=== PATIENT | male | born 1935 | race Caucasian/White ===

== ENCOUNTER → 2016-12-31 | Outpatient (CLI) | payer MEDICARE, BC ==
[2015-08-13 19:28] VITALS: BP 115/59
[~2016-12-31] MED LIST: ALBUTEROL0.63 MG/3 INH; ALDACTONE 25MG25 M1 PO; AVODART 0.5MG0.5 MG PO; COREG12.5 MG PO; COUMADIN 5MG5 MG/TAB PO; COUMADIN5 MG PO; DIGOX0.125 MG PO; FINASTERIDE5 M1 PO; IPRATROPIUM BROM3 M1 IH; LASIX40 MG PO; METOLAZONE5 MG PO; MUCINEX 60600 MG/TA1 PO; OMEPRAZOLE20 MG PO; QUINAPRIL HCL10 MG PO; QUINAPRIL HCL5 MG PO; SENNA8.6 M2 PO; SPIRIVA HANDIH18 MCG IH; ST. JOSEPH81 M2 PO; SYNTHROID0.1 MG PO; VYTORIN 10 MG-81 TAB PO
== END ==
LOC: LAB 10:10
DX: Z51.81 Encounter for therapeutic drug level monitoring (principal); Z79.899 Other long term (current) drug therapy; I50.9 Heart failure, unspecified

== ENCOUNTER → 2017-07-30 | Outpatient (CLI) | payer MEDICARE, BC ==
[2015-08-13 19:28] VITALS: BP 115/59
[2017-07-30 12:30] LABS: ALBUMIN 3.7 g/dL (3.5-5.0); BUN/CREATININE RATIO 16.6 (6.0-26.0); CALCIUM 9.2 mg/dL (8.4-10.2); POTASSIUM 4.8 mmol/L (3.6-5.0); TOTAL BILIRUBIN 0.7 mg/dL (0.2-1.3); TOTAL PROTEIN 7.3 g/dL (6.3-8.2)
[2017-07-30 13:20] LABS: HEMATOCRIT 39.4 % (42.0-52.0); HEMOGLOBIN 13.3 g/dL (13.5-18.0); MEAN CELL VOLUME 95 fl (78-100); MEAN CORPUSCULAR HEMOGLOBIN 32 pg (27-31); MEAN CORPUSCULAR HGB CONC 34 g/dL (33-37); MEAN PLATELET VOLUME 10.9 fl (7.4-10.4); PLATELET COUNT 183 K/mm3 (130-400); RED BLOOD COUNT 4.16 M/mm3 (4.20-5.60); RED CELL DISTRIBUTION WIDTH 13.6 % (11.5-14.5); WHITE BLOOD COUNT 6.9 K/mm3 (4.8-10.8)
[2017-07-30 13:42] LABS: LYMPHOCYTE 10 % (20-51); NEUTROPHILS 76 % (42-75)
[2017-07-30 13:43] LABS: MONOCYTE 10 % (3-10)
[2017-07-30 13:45] LABS: ERYTHROCYTE SEDIMENTATION RATE 14 mm/hr (0-20)
[2017-07-31 01:04] LABS: TESTOSTERONE 1008 ng/dL (221-716)
== END ==
LOC: LAB 11:58
PROVIDERS: Internal Medicine
DX: I25.10 Atherosclerotic heart disease of native coronary artery without angina pectoris (principal); E11.9 Type 2 diabetes mellitus without complications; Z12.5 Encounter for screening for malignant neoplasm of prostate; R20.2 Paresthesia of skin; N52.03 Combined arterial insufficiency and corporo-venous occlusive erectile dysfunction

== ENCOUNTER → 2017-10-14 | Outpatient (CLI) | payer MEDICARE, BC ==
[2015-08-13 19:28] VITALS: BP 115/59
[2017-10-14 15:12] LABS: HEMATOCRIT 42.3 % (42.0-52.0); HEMOGLOBIN 13.5 g/dL (13.5-18.0); MEAN PLATELET VOLUME 10.5 fl (7.4-10.4); RED BLOOD COUNT 4.53 M/mm3 (4.20-5.60); RED CELL DISTRIBUTION WIDTH 13.1 % (11.5-14.5); WHITE BLOOD COUNT 9.6 K/mm3 (4.8-10.8)
[2017-10-14 15:20] LABS: BUN/CREATININE RATIO 16.1 (6.0-26.0); CALCIUM 8.8 mg/dL (8.4-10.2); POTASSIUM 4.6 mmol/L (3.6-5.0)
== END ==
LOC: LAB 14:45
PROVIDERS: Internal Medicine Cardiovascular Disease
DX: I97.131 Postprocedural heart failure following other surgery (principal); I49.9 Cardiac arrhythmia, unspecified

== ENCOUNTER → 2017-12-04 | Outpatient (CLI) | payer MEDICARE, BC ==
[2015-08-13 19:28] VITALS: BP 115/59
[2017-12-04 09:51] LABS: HEMATOCRIT 37.1 % (42.0-52.0); MEAN CELL VOLUME 90 fl (78-100); MEAN CORPUSCULAR HEMOGLOBIN 29 pg (27-31); MEAN CORPUSCULAR HGB CONC 32 g/dL (33-37); MEAN PLATELET VOLUME 10.6 fl (7.4-10.4); PLATELET COUNT 200 K/mm3 (130-400); RED BLOOD COUNT 4.14 M/mm3 (4.20-5.60); RED CELL DISTRIBUTION WIDTH 13.9 % (11.5-14.5); WHITE BLOOD COUNT 7.6 K/mm3 (4.8-10.8)
[2017-12-04 10:03] LABS: ALBUMIN 3.7 g/dL (3.5-5.0); BUN/CREATININE RATIO 14.1 (6.0-26.0); CALCIUM 8.8 mg/dL (8.4-10.2); TOTAL BILIRUBIN 0.8 mg/dL (0.2-1.3); TOTAL PROTEIN 7.4 g/dL (6.3-8.2)
[2017-12-04 10:20] LABS: LYMPHOCYTE 12 % (20-51); MONOCYTE 12 % (3-10); NEUTROPHILS 71 % (42-75)
== END ==
LOC: LAB 09:40
PROVIDERS: Internal Medicine
DX: I25.5 Ischemic cardiomyopathy (principal); E11.9 Type 2 diabetes mellitus without complications; J44.9 Chronic obstructive pulmonary disease, unspecified; Z88.8 Allergy status to other drugs, medicaments and biological substances

== ENCOUNTER → 2018-01-12 | Outpatient (CLI) | payer MEDICARE, BC ==
[2015-08-13 19:28] VITALS: BP 115/59
[2018-01-12 14:56] LABS: HEMATOCRIT 34.6 % (42.0-52.0); HEMOGLOBIN 11.3 g/dL (13.5-18.0); MEAN CELL VOLUME 81 fl (78-100); MEAN CORPUSCULAR HEMOGLOBIN 27 pg (27-31); MEAN CORPUSCULAR HGB CONC 33 g/dL (33-37); MEAN PLATELET VOLUME 10.5 fl (7.4-10.4); PLATELET COUNT 247 K/mm3 (130-400); RED BLOOD COUNT 4.27 M/mm3 (4.20-5.60); RED CELL DISTRIBUTION WIDTH 14.9 % (11.5-14.5); WHITE BLOOD COUNT 7.5 K/mm3 (4.8-10.8)
[2018-01-12 15:11] LABS: ALBUMIN 3.6 g/dL (3.5-5.0); BUN/CREATININE RATIO 19.3 (6.0-26.0); CALCIUM 8.7 mg/dL (8.4-10.2); POTASSIUM 4.1 mmol/L (3.6-5.0); TOTAL BILIRUBIN 1.1 mg/dL (0.2-1.3); TOTAL PROTEIN 7.5 g/dL (6.3-8.2)
[2018-01-12 23:53] LABS: LYMPHOCYTE 8 % (20-51); MONOCYTE 8 % (3-10); NEUTROPHILS 80 % (42-75); POLYCHROMASIA 1+
[2018-01-12 23:54] LABS: ACANTHROCYTES 1+; OVALOCYTES 1+; TARGET CELLS 1+
[2018-01-12 23:55] LABS: ERYTHROCYTE SEDIMENTATION RATE 32 mm/hr (0-20)
== END ==
LOC: RAD 14:33
PROVIDERS: Internal Medicine
DX: I51.7 Cardiomegaly (principal); R06.02 Shortness of breath; E11.9 Type 2 diabetes mellitus without complications; I25.5 Ischemic cardiomyopathy; Z88.8 Allergy status to other drugs, medicaments and biological substances

== ENCOUNTER 2018-02-19 09:19 | Emergency (ER) | payer MEDICARE, BC ==
[~2018-02-19] VITALS: Ht 167.6 cm; Wt 67.3 kg
[~2018-02-19 09:19] MED LIST changes: -SYNTHROID0.1 MG PO; +SYNTHROID0.125 MG PO
[2018-02-19 10:19] LABS: HEMATOCRIT 34.3 % (42.0-52.0); HEMOGLOBIN 10.9 g/dL (13.5-18.0); MEAN CELL VOLUME 76 fl (78-100); MEAN CORPUSCULAR HEMOGLOBIN 24 pg (27-31); MEAN CORPUSCULAR HGB CONC 32 g/dL (33-37); MEAN PLATELET VOLUME 10.8 fl (7.4-10.4); PLATELET COUNT 223 K/mm3 (130-400); RED BLOOD COUNT 4.49 M/mm3 (4.20-5.60); RED CELL DISTRIBUTION WIDTH 17.4 % (11.5-14.5); WHITE BLOOD COUNT 5.6 K/mm3 (4.8-10.8)
[2018-02-19] MEDS ORDERED: LASIX20 M1 PO (10:21)
[2018-02-19] MEDS ORDERED: MAGNESIUM OXID400 MG PO (10:22)
[2018-02-19] MEDS ORDERED: AMIODARONE200 MG PO (10:23)
[2018-02-19] MEDS ORDERED: METOPROLOL SUCC25 M1 PO (10:24)
[2018-02-19] MEDS ORDERED: KLOR-CON M1010 MEQ PO (10:25)
[2018-02-19] MEDS ORDERED: FLUTICASON0.05 MG/Ac NS (10:26)
[2018-02-19] MEDS ORDERED: XARELTO20 MG PO (10:26)
[2018-02-19] MEDS ORDERED: TOPCARE LAXATIVE5 MG PO (10:27)
[2018-02-19] MEDS ORDERED: ATORVASTATIN CA40 MG PO (10:28)
[2018-02-19] MEDS ORDERED: SINGULAIR 110 MG/TAB PO (10:28)
[2018-02-19] MEDS ORDERED: ALPRAZOLAM0.25 MG PO (10:30)
[2018-02-19] MEDS ORDERED: ZYRTEC10 M3 PO (10:30)
[2018-02-19] MEDS ORDERED: FLOVENT DI100 MCG/Ac IH (10:31)
[2018-02-19] MEDS ORDERED: ZOLPIDEM TART12.5 MG PO (10:31)
[2018-02-19 10:33] LABS: PARTIAL THROMBOPLASTIN TIME 40.6 SECONDS (21.0-32.0); PROTHROMBIN TIME 16.7 SECONDS (9.0-12.0)
[2018-02-19 10:37] LABS: CKMB ISOENZYME 2.1 ng/mL (0.6-3.5)
[2018-02-19 10:44] LABS: ALBUMIN 2.9 g/dL (3.5-5.0); BUN/CREATININE RATIO 20.8 (6.0-26.0); CALCIUM 8.3 mg/dL (8.4-10.2); DIGOXIN 1.9 ng/mL (0.8-2.0); POTASSIUM 4.1 mmol/L (3.6-5.0); TOTAL PROTEIN 6.1 g/dL (6.3-8.2)
[2018-02-19 10:46] LABS: TROPONIN-I < 0.03 ng/mL (0.00-0.06)
[2018-02-19 10:47] LABS: ACANTHROCYTES 1+; LYMPHOCYTE 9 % (20-51); MICROCYTOSIS 1+; MONOCYTE 8 % (3-10); NEUTROPHILS 79 % (42-75); OVALOCYTES 1+
[2018-02-19 10:52] LABS: URINE APPEARANCE CLEAR; URINE BILIRUBIN NEGATIVE (NEGATIVE); URINE BLOOD NEGATIVE (NEGATIVE); URINE COLOR YELLOW; URINE GLUCOSE NEGATIVE (NEGATIVE); URINE KETONE NEGATIVE (NEGATIVE); URINE LEUKOCYTE ESTERASE NEGATIVE (NEGATIVE); URINE MUCUS PRESENT (NOT PRESENT); URINE NITRATE NEGATIVE (NEGATIVE); URINE PROTEIN(semi-quant) NEGATIVE (NEGATIVE); URINE UROBILINOGEN NORMAL (NORMAL); URINE WBC 0-1 /hpf (0-3)
--- NOTE | 2018-02-19 11:55 | NUR ---
Pt and dtr request additional info for assistance at home. They are given Private Pay Home Assistance list and EVENING ANCHOR choice list and all options are explained to them. They choose [facility] and records are faxed to [place] and order obtained from Dr Mendez
[2018-02-19] MEDS ORDERED: LEXAPRO5 MG PO (12:29)
[2018-02-19 12:50] VITALS: BP 99/64
[2018-02-19] MEDS ORDERED: CEFDINIR300 MG PO (12:57)
== END 2018-02-19 13:03 | disposition home or self-care (01) ==
LOC: ED 09:19
PROVIDERS: Physician Assistant
DX: R53.83 Other fatigue (principal); R63.0 Anorexia; R91.8 Other nonspecific abnormal finding of lung field; I42.9 Cardiomyopathy, unspecified; E11.9 Type 2 diabetes mellitus without complications; I11.0 Hypertensive heart disease with heart failure; I50.9 Heart failure, unspecified; I25.10 Atherosclerotic heart disease of native coronary artery without angina pectoris; J44.9 Chronic obstructive pulmonary disease, unspecified; Z86.73 Personal history of transient ischemic attack (TIA), and cerebral infarction without residual deficits; E03.9 Hypothyroidism, unspecified; Z95.810 Presence of automatic (implantable) cardiac defibrillator; F32.9 Major depressive disorder, single episode, unspecified; I49.9 Cardiac arrhythmia, unspecified; I48.91 Unspecified atrial fibrillation; Z79.01 Long term (current) use of anticoagulants